=== PATIENT | male | born 1955 | race Caucasian/White ===

== ENCOUNTER → 2016-08-14 | Outpatient (CLI) | payer BC ==
[~2016-08-14] MED LIST: ACETAMINOPHEN PO; AUGMENTIN875 M1 PO; BAYER ASPIRIN325 M1 PO; CLOPIDOGREL75 MG PO; COREG6.25 MG PO; ENTRESTO 24 MG1 EACH PO; ENTRESTO 49 MG1 EACH PO; FIBER500 MG PO; HYZAAR 50-12.51 TA1 PO; IBUPROFEN PO; LIPITOR20 MG PO; LISINOPRIL PO; LISINOPRIL20 MG PO; MELOXICAM15 MG PO; MULTI-VITAMIN1 TAB PO; MULTIVITAMINS1 EAC3 PO; NASONEX17 GM; NORVASC2.5 MG PO; OMEPRAZOLE40 M1 PO; OMEPRAZOLE40 MG; PATIENT'S PHARMACY; PERCOCET PO; PHENERGAN25 M1 PO; PREVACID PO; PROZAC PO; SINGULAIR PO; TYLENOL325 M1 PO; XANAX XR1 MG PO; ZOCOR20 MG PO
--- NOTE | ~2016-08-14 | CT15 ---
[facility] A Service of [facility] & [facility] RADIOLOGY TEXT RESULTS PATIENT: FRANCISCO ALLEN LOCATION: [facility] : 53 UNIT #: [id number] AGE: [address]: Dickson Morse MD SEX: M ORDER DR: [id number] [facility] [address] [place], [place] [address] [id number] O MR#: [id number] [facility] #: [id number] NAME: FRANCISCO ALLEN : 1955 SEX: M STUDY DATE/TIME: 08/14/2016 13:13 UNIT: [facility] ROOM: STUDY DESCRIPTION: CT Angio Chest Attending Physician: Dickson Morse M.D. Referring Physician: Dickson Morse M.D. Ordering Physician: Dickson Morse M.D. Primary Care Physician: Syed Tate M.D. MEDICAL IMAGING REPORT This report is preliminary unless electronic signature is present EXAM CT angiography chest 08/14/2016 HISTORY Aortic aneurysm without rupture. Bicuspid aortic valve. 5.5 cm aortic aneurysm on echo 2016. This CT exam was performed with one or more of the following radiation dose reduction techniques: automatic exposure control, adjustment of mA and/or kV according to patient size, and iterative reconstruction. FINDINGS CT angiography of the chest performed with intravenous administration of 100 mL Isovue-370. Multiple three-dimensional reconstructions performed through the aorta. Comparison 08/28/2012. Thyroid unremarkable. No axillary, mediastinal or hilar adenopathy. Heart is normal in size. No pleural effusions. Visualized portions of liver, gallbladder, spleen, pancreas, adrenal glands, upper renal poles unremarkable. No upper abdominal adenopathy. The visualized alimentary canal is unremarkable. Bony structures show stable L1 moderate compression deformity. Multilevel degenerative changes. No acute-appearing bony abnormality. Vascular anatomy: The study was not tailored for assessment of pulmonary arteries but they are well opacified and no pulmonary thromboembolic disease is suggested. There are calcifications at the level of the aortic valve. The aortic root measures approximately 3.8 cm in diameter at level of the sinuses of Valsalva on the coronal reconstructed images, no change from prior study. There is fusiform dilatation of the ascending aorta which measures up to 5 cm in diameter at level of sinuses of Valsalva. No change. Descending thoracic aorta and visualized upper abdominal aorta normal in caliber. Great vessel origins are patent with flow demonstrated in proximal vertebral and common carotid arteries. Celiac axis, superior mesenteric artery widely patent. Single right renal artery visualized on STS. [facility] A Service of [facility] & [facility] RADIOLOGY TEXT RESULTS PATIENT: FRANCISCO ALLEN LOCATION: [facility] : 53 UNIT #: [id number] AGE: [address]: Dickson Morse MD SEX: M ORDER DR: this examination with mild disease proximally. Two left renal arteries are seen with mild disease in the small upper left renal artery. Pulmonary parenchyma: No acute disease. No suspicious nodule. IMPRESSION 1. Ectatic aortic root measuring about 3.8 cm in diameter at level of sinuses of Valsalva. No change from August 2012. Note made of prominent aortic valvular calcifications. Similar appearance on prior study. 2. Fusiform ascending aortic aneurysm measuring 5 cm in diameter at level of right main pulmonary artery. No change. No dissection. Descending thoracic aorta and visualized upper abdominal aorta normal in caliber. Visualized aortic branch vessels patent. See discussion in body of report above. 3. Lungs clear. 4. No acute abnormality seen in the visualized upper abdomen. 5. Degenerative changes in the spine. Stable appearance. See details above. Dictated by... Errol Singh M.D. THIS IS AN ELECTRONICALLY VERIFIED REPORT Errol Singh M.D. at 08/16/2016 11:43 AM Jamie TD: 08/15/2016 14:23 JOB #: [id number] MEDICAL IMAGING REPORT COPY
== END | disposition home or self-care (01) ==
LOC: CCAT 12:40
DX: I71.2 Thoracic aortic aneurysm, without rupture (principal); M47.816 Spondylosis without myelopathy or radiculopathy, lumbar region
CPT/HCPCS: 71275; Q9967

== ENCOUNTER → 2016-09-19 | Outpatient (CLI) | payer BC ==
[2016-09-19 12:21] LABS: CALCIUM SERUM 8.7 mg/dL (8.4-10.2); GLOM FILT RATE Estimated 80.3 mL/min (>60); MAGNESIUM 1.9 mg/dL (1.6-3.0); POTASSIUM 4.7 mmol/L (3.5-5.1)
== END | disposition home or self-care (01) ==
LOC: CLAB 10:41
DX: I50.22 Chronic systolic (congestive) heart failure (principal)
CPT/HCPCS: 36415; 80048; 83735

== ENCOUNTER 2016-12-04 07:40 | Emergency (ER) | payer BC ==
--- NOTE | ~2016-12-04 | EKG ---
PATIENT: FRANCISCO ALLEN UNIT #: [id number] Ventricular Rate: 74 BPM Atrial Rate: 74 BPM P-R Interval: 146 ms QRS Duration: 90 ms Q-T Interval: 372 ms QTC Calculation(Bezet): 412 ms P [place]: 20 degrees Calculated R [place]: -20 degrees Calculated T [place]: 59 degrees Diagnosis Line: Normal sinus rhythm Diagnosis Line: Nonspecific T wave abnormality Diagnosis Line: Abnormal ECG Diagnosis Line: When compared with ECG of 05-JUL-2016 12:19, Diagnosis Line: No significant change was found Diagnosis Line: Confirmed by GRECIA DARLING MD ([id number]) on Diagnosis Line: 12/04/2016 10:42:46 PM INTERPRETING MD: JENNYFER
--- NOTE | ~2016-12-04 | CR72 ---
[facility] A Service of [facility] & [facility] RADIOLOGY TEXT RESULTS PATIENT: FRANCISCO ALLEN LOCATION: [facility] : 53 UNIT #: [id number] AGE: [address]: Mansoor Lala MD SEX: M ORDER DR: [id number] [facility] [address] [place], [place] [address] [id number] MR#: [id number] Acc #: [id number] NAME: FRANCISCO ALLEN. : 1955 SEX: M STUDY DATE/TIME: 12/04/2016 9:24 UNIT: [facility] ROOM: STUDY DESCRIPTION: CR Chest Single View Portable Attending Physician: Mansoor Lala M.D. Ordering Physician: Mansoor Lala M.D. Primary Care Physician: Syed Tate M.D. MEDICAL IMAGING REPORT This report is preliminary unless electronic signature is present EXAM Single view chest INDICATION Chest pain and weakness. Shortness of air. FINDINGS Single portable AP view of the chest is compared to 08/21/2012. The heart and mediastinal contours are within normal limits. Lungs are clear. No pleural effusion. IMPRESSION No acute cardiopulmonary findings. Dictated by... Javier Thomas M.D. THIS IS AN ELECTRONICALLY VERIFIED REPORT Javier Thomas M.D. at 12/04/2016 4:47 PM Juani TD: 12/04/2016 14:17 JOB #: [id number] MEDICAL IMAGING REPORT Page 1 of 1 COPY
[~2016-12-04 07:40] MED LIST changes: -ENTRESTO 49 MG1 EACH PO; -FIBER500 MG PO; -MULTIVITAMINS1 EAC3 PO; -PATIENT'S PHARMACY
[2016-12-04 09:25] LABS: BASOPHIL% 0.6 % (0-2.5); EOSINOPHIL# 0.1 X10e3 (0-0.7); EOSINOPHIL% 1.2 % (0.0-7.0); HEMOGLOBIN 14.2 gm/dL (13.0-16.0); LYMPHOCYTE# 1.6 X10e3 (1.0-3.5); LYMPHOCYTE% 21.1 % (17.0-45.0); MEAN CELL VOLUME 86.1 FL (83-96); MEAN CORPUSCULAR HEMOGLOBIN 28.5 PG (28-34); MEAN PLATELET VOLUME 7.9 FL (6.5-11.5); MONOCYTE# 0.5 X10e3 (0-1.0); MONOCYTE% 6.6 % (3.0-12.0); NEUTROPHIL# 5.2 X10e3 (1.5-7.1); NEUTROPHIL% 70.5 % (40-75); PLATELET COUNT 192 X10e3 (140-420); WHITE BLOOD COUNT 7.4 X10e3 (4.0-10.5)
[2016-12-04 09:26] LABS: DIFF IND NO
[2016-12-04 09:40] LABS: POC - CKMB <1.0 ng/mL (0.0-7.9); POC - TROPONIN <0.05 ng/mL (<=0.05)
[2016-12-04 09:51] LABS: ALBUMIN SERUM 4.1 g/dL (3.5-5.0); BILIRUBIN,TOTAL 0.5 mg/dL (0.2-2.0); BUN/CREATININE RATIO 14.44; CALCIUM SERUM 8.8 mg/dL (8.4-10.2); CREATININE SERUM 0.9 mg/dL (0.6-1.4); GLOM FILT RATE Estimated 91.2 mL/min (>60); POTASSIUM 3.8 mmol/L (3.5-5.1); PROTEIN TOTAL SERUM 6.7 g/dL (6.0-8.3)
[2016-12-04 09:59] LABS: URINE SOURCE CLEAN CATCH
[2016-12-04] MEDS ORDERED: ENTRESTO 49 MG1 EACH PO (10:04)
[2016-12-04 10:05] LABS: URINE APPEARANCE CLEAR; URINE BILIRUBIN NEG (NEG); URINE BLOOD NEG (NEG); URINE COLOR DK YELLOW; URINE GLUCOSE NEG (NEG); URINE KETONE 1+ (NEG); URINE LEUKOCYTE ESTERASE NEG (NEG); URINE NITRATE NEG (NEG); URINE PH 6.5 (5-8); URINE PROTEIN NEG (NEG); URINE SPECIFIC GRAVITY 1.024 (1.003-1.035)
[2016-12-04] MEDS ORDERED: FIBER500 MG PO (10:05)
[2016-12-04] MEDS ORDERED: MULTIVITAMINS1 EAC3 PO (10:05)
[2016-12-04] MEDS ORDERED: PATIENT'S PHARMACY (10:06)
[2016-12-04 10:07] LABS: CULTURE INDICATED? NO
[2016-12-04 11:19] LABS: FREE T3 3.5 pg/mL (2.5-3.9)
[2016-12-04 11:20] LABS: FREE THYROXIN (T4) 0.77 ng/dL (0.58-1.64)
[2016-12-04 11:31] LABS: POC - CKMB <1.0 ng/mL (0.0-7.9); POC - TROPONIN <0.05 ng/mL (<=0.05)
== END 2016-12-04 12:09 | disposition home or self-care (01) ==
LOC: CED 07:40
PROVIDERS: Emergency Medicine
DX: R53.1 Weakness (principal); R53.83 Other fatigue; Z79.899 Other long term (current) drug therapy
CPT/HCPCS: 36415; 71010; 80053; 81003; 82553; 83880; 84439; 84443; 84481; 84484; 85025; 93005; 99285